=== PATIENT | male | born 1995 | race Caucasian/White ===

== ENCOUNTER 2023-11-26 18:47 | Emergency (ER) | payer SELFPAY ==
[~2023-11-26] VITALS: Ht 175.3 cm; Wt 77.0 kg
[2023-11-26 18:52] VITALS: O2SAT 99
[2023-11-26] MEDS: MORPHINE SULFATE 4 MG/ML INJ (FOR IV/IM USE) IM ONE (19:15)
[2023-11-26] MEDS: SODIUM CHLORIDE 0.9% 1,000 ML IV ONE (20:14)
[2023-11-27] MEDS: MORPHINE SULFATE 4 MG/ML INJ (FOR IV/IM USE) IV ONE (00:07)
[2023-11-27] MEDS ORDERED: HYDROMORPHONE HCL/PF 2MG/ML CPJ IV ONE (02:15)
[2023-11-27] MEDS ORDERED: HYDR-4009 MT (04:00)
[2023-11-27 05:48] VITALS: BP 103/54; PULSE 62; RESP 20; TEMP 98.8
== END 2023-11-27 07:22 | disposition home or self-care (01) ==
LOC: ER 18:47
DX: M79.671 Pain in right foot (principal); M79.672 Pain in left foot
CPT/HCPCS: 99285; 73700; 96361; 73610; 73630; 96372; 96374; J2270 ×2; J7030; J1170